=== PATIENT | male | born 1990 | race Caucasian/White ===

== ENCOUNTER 2019-07-05 12:31 | Emergency (ER) | payer MEDICAID ==
[2019-07-05 12:40] VITALS: BP 128/94
[2019-07-05] MEDS ORDERED: PENICILLIN V POTASSIUM 500 MG TABLET PO ONE (12:52)
[2019-07-05] MEDS ORDERED: KETOROLAC TROMETHAMINE 60 MG/2 ML SDV IM ONE (12:52)
[2019-07-05] MEDS ORDERED: LIDOCAINE 2% VISCOUS SOLN 20 ML UDCUP PO ONE (12:52)
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
== END 2019-07-05 13:30 | disposition home or self-care (01) ==
LOC: ER 12:31
DX: K02.9 Dental caries, unspecified (principal); F17.210 Nicotine dependence, cigarettes, uncomplicated; Z88.3 Allergy status to other anti-infective agents
CPT/HCPCS: 99406; 99282; 96372; J1885; J3490

== ENCOUNTER 2019-08-06 02:07 | Emergency (ER) | payer OTHER, MEDICAID ==
[2019-08-06 02:14] VITALS: BP 109/83
[2019-08-06] MEDS ORDERED: OXYCODONE-ACETAMINOPHEN 5-325 MG TABLET PO ONE (02:37)
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
--- NOTE | 2019-08-06 03:26 | RADIOLOGY REPORT (SQ) ---
CLINICAL HISTORY: bone tenderness COMPARISON: None. TECHNIQUE: XR KNEE 4 OR MORE VIEWS 08/06/2019 2:23 AM CDT FINDINGS: There is no fracture. Joint spaces are preserved. Soft tissues are unremarkable. IMPRESSION: No acute osseous findings.
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
== END 2019-08-06 03:55 | disposition home or self-care (01) ==
LOC: ER 02:07
DX: M79.605 Pain in left leg (principal); M25.562 Pain in left knee; M54.5 Low back pain; M25.552 Pain in left hip; V87.7XXA Person injured in collision between other specified motor vehicles (traffic), initial encounter
CPT/HCPCS: 73564; 72170; 73590; L1830

== ENCOUNTER 2019-09-08 21:02 | Emergency (ER) | payer MEDICAID, OTHER ==
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
[2019-09-08] MEDS ORDERED: OXYCODONE-ACETAMINOPHEN 5-325 MG TABLET PO ONE (22:16)
[2019-09-08] MEDS ORDERED: DIPH/PERTUSS(ACELL)/TETANUS VAC/PF 0.5 ML SYR (>=10YO) IM ONE (22:17)
[2019-09-08 22:37] LABS: AMORPHOUS SEDIMENT,URINE TRACE /HPF; APPEARANCE,URINE CLOUDY; BILIRUBIN,URINE NEGATIVE (NEGATIVE); COLOR,URINE YELLOW; GLUCOSE, URINE NEGATIVE (NEGATIVE); KETONES,URINE TRACE mg/dL (NEGATIVE); LEUKOCYTE ESTERASE,URINE NEGATIVE (NEGATIVE); NITRITE,URINE NEGATIVE (NEGATIVE); PROTEIN,URINE NEGATIVE (NEGATIVE); URINE SPECIFIC GRAVITY 1.021; UROBILINOGEN,URINE NEGATIVE mg/dL (<2.0)
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
[2019-09-08 23:46] VITALS: BP 120/72
== END 2019-09-08 23:45 | disposition home or self-care (01) ==
LOC: ER 21:02
DX: S49.91XA Unspecified injury of right shoulder and upper arm, initial encounter (principal); S59.911A Unspecified injury of right forearm, initial encounter; R03.0 Elevated blood-pressure reading, without diagnosis of hypertension; F17.200 Nicotine dependence, unspecified, uncomplicated; W17.89XA Other fall from one level to another, initial encounter
CPT/HCPCS: 81001; 99283

== ENCOUNTER 2019-09-11 14:10 | Emergency (ER) | payer MEDICAID, OTHER ==
[2019-09-11 15:02] VITALS: BP 116/73
--- NOTE | 2019-09-11 15:16 | ER Document Report ---
HPI - HPI Pain Level: 3 - CONSTITUTIONAL Constitutional: DENIES: Fever, Chills - EENT EENT: DENIES: Sore Throat, Ear Pain, Eye problems - NEURO Neurology: DENIES: Headache, Weakness, Vision blurred, Dizzinesss / Vertigo - CARDIOVASCULAR Cardiovascular: DENIES: Chest pain - RESPIRATORY Respiratory: DENIES: Trouble Breathing, Coughing - GASTROINTESTINAL Gastrointestinal: DENIES: Abdominal Pain, Black / Bloody Stools - URINARY Urinary: DENIES: Dysuria, Urgency, Frequency - REPRODUCTIVE Reproductive: DENIES: : - MUSCULOSKELETAL Musculoskeletal: REPORTS: Extremity pain - right arm <MARIJA VASQUEZ - Last Filed: 09/11/19 15:36> <ANAND SINCLAIR IV - Last Filed: 09/11/19 15:54> - HPI Time Seen by Provider: 09/11/19 15:04 Past Medical History - Social History Smoking Status: Current Every Day Smoker Chew tobacco use (# tins/day): No Frequency of alcohol use: None Drug Abuse: None Family History: Reviewed & Not Pertinent Patient has suicidal ideation: No Patient has homicidal ideation: No Renal/ Medical History: Denies: Hx Peritoneal Dialysis Musculoskeletal Medical History: Reports Hx Musculoskeletal Deformity, Reports Hx Musculoskeletal Trauma Traumatic Medical History: Reports: Hx Fractures - Both feet ribs eye socket hand Past Surgical History: Reports: Hx Inguinal Hernia, Hx Oral Surgery, Hx Orthopedic Surgery - Infection in the hand - Immunizations Immunizations up to date: Yes Hx Diphtheria, Pertussis, Tetanus Vaccination: Yes <MARIJA VASQUEZ - Last Filed: 09/11/19 15:36> Vertical Provider Document - INFECTION CONTROL TRAVEL OUTSIDE OF THE [place] IN LAST 30 DAYS: No <MARIJA VASQUEZ - Last Filed: 09/11/19 15:36> Course - Vital Signs Vital signs: Temp Pulse Resp BP Pulse Ox 98.1 F 68 20 116/73 100 09/11/19 15:01 09/11/19 15:01 09/11/19 15:01 09/11/19 15:01 09/11/19 15:01 <MARIJA VASQUEZ - Last Filed: 09/11/19 15:36> - Re-evaluation Re-evalutation: 09/11/19 15:49 This MD personally examined the patient at the request of the mid-level provider. Findings: Patient's right upper extremity was examined. Patient has a area of swelling on the proximal and ulnar aspect of the forearm. The forearm compartment itself is not tense. Patient's capillary refill is less than 2 seconds in all 5 digits. Patient is able to do thumb to finger without difficulty. Patient has slightly decreased extension at the wrist. Patient is able to flex at the wrist without apparent difficulty. There is no pallor or paresthesia or evidence of significant pain to suggest a compartment syndrome. This MD instructed the patient to get in touch with the orthopedic office he was referred to during his last visit and that they would be willing to see him within the next 24 hours and set up a payment plan. - Vital Signs Vital signs: Temp Pulse Resp BP Pulse Ox 98.1 F 68 20 116/73 100 09/11/19 15:01 09/11/19 15:01 09/11/19 15:01 09/11/19 15:01 09/11/19 15:01 <ANAND SINCLAIR IV - Last Filed: 09/11/19 15:54> Discharge <MARIJA VASQUEZ - Last Filed: 09/11/19 15:36> <ANAND SINCLAIR IV - Last Filed: 09/11/19 15:54> - Discharge Clinical Impression: Arm injury Qualifiers: Encounter type: subsequent encounter Laterality: right Qualified Code(s): S49.91XD - Unspecified injury of right shoulder and upper arm, subsequent encounter Condition: Stable Disposition: HOME, SELF-CARE Additional Instructions: Please call orthopedics when you leave here today to schedule an appointment. They may be able to get you on their schedule for tomorrow afternoon. Please continue to alternate Tylenol and/or ibuprofen for pain. Referrals: TAYE MADRIGAL DO [ACTIVE STAFF] - Follow up as needed
== END 2019-09-11 15:40 | disposition home or self-care (01) ==
LOC: ER 14:10
DX: M79.601 Pain in right arm (principal); S49.91XD Unspecified injury of right shoulder and upper arm, subsequent encounter; X58.XXXD Exposure to other specified factors, subsequent encounter; F17.200 Nicotine dependence, unspecified, uncomplicated
CPT/HCPCS: 99283